=== PATIENT | female | born 1950 | race Caucasian/White ===

== ENCOUNTER 2016-10-25 17:27 | Emergency (ER) | payer MEDICARE, OTHER ==
[~2016-10-25] VITALS: Ht 167.6 cm; Wt 76.7 kg
[~2016-10-25 17:27] MED LIST: ATORVASTATIN CA20 MG PO; CITALOPRAM HBR20 MG PO; CLINDAMYCIN HC300 MG PO; ERGOCALCIFEROL PO; FUROSEMIDE80 MG PO; LEVOTHYROXINE75 MCG PO; METOPROLOL SUC100 MG PO; NEPHRO-VITE RX1 TAB PO; PLAVIX75 MG PO; RANITIDINE HCL300 MG PO; SENSIPAR30 MG PO; TUMS200 MG PO; VASOTEC5 MG PO
== END 2016-10-25 21:35 | disposition short-term general hospital (02) ==
LOC: ED 17:27
DX: T82.898A Other specified complication of vascular prosthetic devices, implants and grafts, initial encounter (principal); N18.9 Chronic kidney disease, unspecified; E78.00 Pure hypercholesterolemia, unspecified; E03.9 Hypothyroidism, unspecified; Z79.899 Other long term (current) drug therapy
CPT/HCPCS: 36415; 80053; 83735; 84100; 85025; 85610; 85730; 99285

== ENCOUNTER 2017-06-21 11:59 | Emergency (ER) | payer MEDICARE, OTHER ==
[2017-06-21] MEDS ORDERED: RENVELA800 MG PO (12:53)
[2017-06-21] MEDS ORDERED: TERAZOSIN HCL2 MG PO (12:54)
== END 2017-06-21 15:03 | disposition home or self-care (01) ==
LOC: ED 11:59
DX: S09.90XA Unspecified injury of head, initial encounter (principal); S93.402A Sprain of unspecified ligament of left ankle, initial encounter; S30.810A Abrasion of lower back and pelvis, initial encounter; N18.6 End stage renal disease; E03.9 Hypothyroidism, unspecified; E78.00 Pure hypercholesterolemia, unspecified; Z79.899 Other long term (current) drug therapy; Z99.2 Dependence on renal dialysis; V09.9XXA Pedestrian injured in unspecified transport accident, initial encounter
CPT/HCPCS: 70450; 71045; 72125; 72170; 73610; 99284

== ENCOUNTER 2020-07-10 10:05 | Emergency (ER) | payer MEDICARE, OTHER ==
[~2020-07-10] VITALS: Ht 167.6 cm; Wt 66.7 kg
[~2020-07-10 10:05] MED LIST changes: +RENVELA800 MG PO; +TERAZOSIN HCL2 MG PO
--- OUTSIDE RECORDS SUMMARY | 2020-07-10 10:10 | XMS ---
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 EEdie VISIT COUNT (12 MO.) 1 TELMA Johnson TOTAL 1 NOTE: Visits indicate total known visits. ED/UCC VISIT TRACKING (12 MO.) 07/10/2020 10:05 TELMA [facility] [place] TYPE: Emergency COMPLAINT: - BLEEDING FROM L ARM INPATIENT VISIT TRACKING (12 MO.) No inpatient visits to display in this time frame [email or web address]
--- NOTE | 2020-07-11 11:51 | EKG ---
[facility] [address] [facility] [place], [place] [address] Signed Normal sinus rhythm Normal ECG No previous ECGs available Confirmed by LUCERO MONTERO DO ([id number]) on 07/11/2020 11:50:45 AM Electronically Signed By: LUCERO MONTERO DO 07/11/20 1151 PATIENT NAME: YAZMIN LOVE Electrocardiogram DATE OF : 52 PHYSICIAN: LUCERO MONTERO DO REPORT #: [id number] REPORT IS CONFIDENTIAL AND NOT TO BE RELEASED WITHOUT AUTHORIZATION
== END 2020-07-10 14:44 | disposition home or self-care (01) ==
LOC: ED 10:05
DX: T82.838A Hemorrhage due to vascular prosthetic devices, implants and grafts, initial encounter (principal); E87.5 Hyperkalemia; N18.9 Chronic kidney disease, unspecified; E78.00 Pure hypercholesterolemia, unspecified; E03.9 Hypothyroidism, unspecified; Z79.899 Other long term (current) drug therapy
CPT/HCPCS: 80053; 84484; 85025; 93005; 93010; 99285-25

== ENCOUNTER 2020-07-12 14:12 | Emergency (ER) | payer MEDICARE, OTHER ==
[~2020-07-12] VITALS: Ht 167.6 cm; Wt 66.7 kg
--- OUTSIDE RECORDS SUMMARY | 2020-07-12 14:14 | XMS ---
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 - 2 Visits in 30 Days CARE PROVIDERS RIMA WALKER Internal Medicine: Nephrology Current PHONE: Unknown Shan Tinoco Verifier Operator/Fishing Boat Mate 05/08/2020-Current PHONE: [phone] ROSEANNE COLBY [facility] 07/11/2020-Current PHONE: [phone] Kiran has no Care Guidelines for this patient. Care History Medical/Surgical 07/11/2020 [facility] - Patient is currently established with [facility]. If patient is seen in the ED during business hours. Please contact [facility] at [facility]. - Care Recommendation: If this patient has had 5 or more Emergency Department visits in the last 12 months.\T\nbsp; Patient will require education on the scope and purpose of the ED as an acute care provider not a Primary Care Provider and should not be utilized for chronic conditions.\T\nbsp; These are guidelines and the provider should exercise clinical judgment when providing care. E.D. VISIT COUNT (12 MO.) 2 TELMA Johnson TOTAL 2 NOTE: Visits indicate total known visits. ED/UCC VISIT TRACKING (12 MO.) 07/12/2020 14:12 TELMA [facility] [place] TYPE: Emergency COMPLAINT: - WEAKNESS, VOMITTING 07/10/2020 10:05 TELMA [facility] [place] TYPE: Emergency COMPLAINT: - BLEEDING FROM L ARM INPATIENT VISIT TRACKING (12 MO.) No inpatient visits to display in this time frame [id number]
--- NOTE | 2020-07-12 19:41 | EKG ---
[facility] [address] [facility] [place] [address] Signed Sinus rhythm with premature supraventricular complexes Otherwise normal ECG When compared with ECG of 10-JUL-2020 10:43, premature supraventricular complexes are now present Confirmed by PAUL SANTIZO MD ([id number]) on 07/12/2020 7:41:45 PM Electronically Signed By: PAUL SANTIZO MD 07/12/201940 PATIENT NAME: YAZMIN LOVE Electrocardiogram DATE OF : 52 PHYSICIAN: PAUL SANTIZO MD REPORT #: [id number] REPORT IS CONFIDENTIAL AND NOT TO BE RELEASED WITHOUT AUTHORIZATION
--- NOTE | 2020-07-15 13:48 | CONS ---
[facility] [address] [place], [place] [address] Signed DATE OF CONSULTATION: 07/12/2020 TIME: 7 p.m. PROBLEM: Chronic renal failure with acute exacerbation of renal failure, hyperkalemia, and need for central venous access. HISTORY OF PRESENT ILLNESS: This 69-year-old white woman undergoes dialysis on a routine basis through her left upper arm AV fistula. She was seen a few days ago in the ER apparently for persistent bleeding from the site. She presented today to the emergency room where she was evaluated by Dr. Pearl, having vomiting and not well. She felt weak and did not make her dialysis appointment on the basis of her feeling poorly. She was evaluated and found to have abnormal laboratory studies including elevated white count of 19.2, hematocrit of 34.3, platelet count of 82,000, potassium of 6.3. Bicarbonate was 20, creatinine is 14.73. Dr. Pearl notes that she has very poor peripheral access other than the arteriovenous graft in her left arm and requests a central line be placed prior to her transfer for dialysis which will be undertaken under the direction of Dr. Cristine Alex. REVIEW OF SYSTEMS: She denies shortness of breath. She has no particular feeling of pain anywhere. She is somewhat listless and poorly communicative generally speaking. PHYSICAL EXAMINATION: GENERAL: A white woman who looks somewhat pale overall. VITAL SIGNS: Blood pressure was 191/98, pulse oximetry 94% on room air. NECK: Shows no thyromegaly or cervical adenopathy. Good anatomy was noted in the right internal jugular vein area. She has a functioning AV graft in her left upper arm. ABDOMEN: Soft and nondistended. EXTREMITIES: Show no clubbing, cyanosis, or edema. Lab studies are as noted before. Serology test for COVID is still pending. ASSESSMENT: Central venous catheterization is requested by Dr. Pearl to initiate plans for hyperkalemia. She is thought to have EKG changes consistent with this finding and apparently the AV graft itself is not suitable for infusion of medications anticipated to blunt the effect of her hyperkalemia at this time. On that basis, a central venous catheter has been recommended. The risks of bleeding, infection, misplacement, and so forth were reviewed with the patient. She understands and wished to proceed. Electronically Signed By: LEENA ABBOTT MD 07/15/20 1348 PATIENT NAME: YAZMIN LOVE CONSULTATION DATE OF : 52 REPORT #: [id number] PHYSICIAN: LEENA ABBOTT MD PCP: ROSEANNE COLBY MD REPORT IS CONFIDENTIAL AND NOT TO BE RELEASED WITHOUT AUTHORIZATION [facility] [address] [place] [id number] Signed MD JANELLE Joy/MODL /[id number] cc: Dr. Aaron Pearl Copies: ~ Electronically Signed By: LEENA ABBOTT MD 07/15/20 1348 PATIENT NAME: YAZMIN LOVE CONSULTATION DATE OF : 52 REPORT #: [id number] PHYSICIAN: LEENA ABBOTT MD PCP: ROSEANNE COLBY MD REPORT IS CONFIDENTIAL AND NOT TO BE RELEASED WITHOUT AUTHORIZATION
--- NOTE | 2020-07-15 13:48 | OR ---
[facility] [address] [facility] [place], [place] [address] Signed DATE OF OPERATION: 07/12/2020 SURGEON: Leena Abbott MD TIME: 07:15 p.m. PREOPERATIVE DIAGNOSES: Chronic renal failure with dialysis; currently hyperkalemic with need for acute care, poor peripheral access. POSTOPERATIVE DIAGNOSES: Chronic renal failure with dialysis; currently hyperkalemic with need for acute care, poor peripheral access. PROCEDURE: Right internal jugular central venous catheterization (Arrow Blue Tip triple-lumen catheter.) ANESTHESIA: 1% lidocaine. INDICATION: This 69-year-old white woman has acute renal failure on top of chronic renal failure. She is dialyzed routinely, but skipped her most recent dialysis as she was not feeling well. She is noted to have an elevated white count of 19.2 with hematocrit of 34.3 and a platelet count of 82,000. Chemistries showing a potassium of 6.3, a bicarbonate of 20, creatinine of 14.73 and a glucose of 130. The risks of central venous catheterization were reviewed with her in detail including, but not limited to, bleeding, infection, arterial injury, and other unforeseen complications. She understands and wished to proceed. FINDINGS: Dark nonpulsatile blood was noted from the right internal jugular vein. The passage of the catheter was without complication and highly functional. DESCRIPTION OF PROCEDURE: In the supine position, the right neck area was prepared with a chlorhexidine solution and draped sterilely. A 1% lidocaine was injected over the right sternocleidomastoid muscle. Using the Seldinger technique with Arrow Blue Tip triple-lumen catheter kit and Electronically Signed By: LEENA ABBOTT MD 07/15/20 1348 PATIENT NAME: YAZMIN LOVE OPERATIVE REPORT DATE OF : 52 REPORT #: [id number] PHYSICIAN: LEENA ABBOTT MD PCP: ROSEANNE COLBY MD REPORT IS CONFIDENTIAL AND NOT TO BE RELEASED WITHOUT AUTHORIZATION [facility] [address] [place], [place] [address] Signed full sterility precautions including mask, gloves, and gown, the right internal jugular vein was easily accessed showing dark nonpulsatile blood. A flexible J-wire was passed down the needle, the needle was removed. The site was incised with an #11 blade and dilated with Arrow Blue Tip dilator device and previously inspected and irrigated Arrow Blue Tip triple-lumen catheter passed over the wire. Aspiration on the distal port showed dark nonpulsatile blood. The ports were all flushed with sterile saline. The catheter was withdrawn several cm and secured with white collar device per usual and secured to the skin with nylon suture. An anti-infective disk was applied as was a SorbaView dressing. She tolerated the procedure well. I recommended chest x-ray for line placement to assess for line placement, but due to the plan for emergent transfer, this may not be practical at the moment. I am confident there is no pneumothorax or other similar complication. MD JANELLE Joy/MARIALUISA /[id number] cc: Dr. Aaron Pearl Copies: ~ Electronically Signed By: LEENA ABBOTT MD 07/15/20 1348 PATIENT NAME: YAZMIN LOVE OPERATIVE REPORT DATE OF : 52 REPORT #: [id number] PHYSICIAN: LEENA ABBOTT MD PCP: ROSEANNE COLBY MD REPORT IS CONFIDENTIAL AND NOT TO BE RELEASED WITHOUT AUTHORIZATION
== END 2020-07-12 20:00 | disposition short-term general hospital (02) ==
LOC: ED 14:12
DX: E87.5 Hyperkalemia (principal); N18.6 End stage renal disease; D72.829 Elevated white blood cell count, unspecified; R77.8 Other specified abnormalities of plasma proteins; Z99.2 Dependence on renal dialysis; E78.00 Pure hypercholesterolemia, unspecified; E03.9 Hypothyroidism, unspecified; Z79.899 Other long term (current) drug therapy; Z20.822 Contact with and (suspected) exposure to COVID-19
CPT/HCPCS: 36556; 71045; 80053; 83735; 84484; 85025; 85610; 85730; 93005; 93010; 99285-25; C9803; J1815; J2405; U0003

== ENCOUNTER 2020-09-23 10:46 | Emergency (ER) | payer MEDICARE, OTHER ==
[~2020-09-23] VITALS: Ht 167.6 cm; Wt 66.7 kg
== END 2020-09-23 18:36 | disposition short-term general hospital (02) ==
LOC: ED 10:46
DX: R78.81 Bacteremia (principal); E78.00 Pure hypercholesterolemia, unspecified; E03.9 Hypothyroidism, unspecified; N18.9 Chronic kidney disease, unspecified; Z79.899 Other long term (current) drug therapy; Z20.822 Contact with and (suspected) exposure to COVID-19
CPT/HCPCS: 80053; 83605; 85025; 87040; 96365; 96366; 99284-25; J3370; J7060; U0003